=== PATIENT | female | born 1985 | race African-American/Black ===

== ENCOUNTER 2020-04-04 11:28 | Emergency (ER) | payer OTHER, MEDICAID ==
[~2020-04-04] VITALS: Ht 162.6 cm; Wt 68.2 kg
[2020-04-04 11:53] VITALS: BP 108/65
[2020-04-04] MEDS ORDERED: BACITRACIN 0.9 GM PACKET OINTMENT TP ONE (14:00)
== END 2020-04-04 14:22 | disposition home or self-care (01) ==
LOC: EMS 11:33
DX: S01.01XA Laceration without foreign body of scalp, initial encounter (principal); F12.90 Cannabis use, unspecified, uncomplicated; Z88.1 Allergy status to other antibiotic agents; Z88.0 Allergy status to penicillin; W22.8XXA Striking against or struck by other objects, initial encounter; Y93.89 Activity, other specified; Y92.89 Other specified places as the place of occurrence of the external cause; Y99.8 Other external cause status